=== PATIENT | male | born 1975 | race Caucasian/White ===

== ENCOUNTER → 2016-12-14 | Outpatient (CLI) | payer OTHER | LOC: BMCIMAGING 11:17 | PROVIDERS: ATTEND Family Medicine | DX: J18.9 Pneumonia, unspecified organism (principal) ==

== ENCOUNTER → 2017-04-14 | Outpatient (CLI) | payer OTHER | LOC: BMCIMAGING 10:03 | PROVIDERS: ATTEND Registered Nurse General Practice | DX: M25.511 Pain in right shoulder (principal); M25.561 Pain in right knee ==

== ENCOUNTER 2018-10-26 11:39 | Emergency (ER) | payer OTHER ==
--- NOTE | 2018-10-26 12:33 | EDPHY ---
H & P Stated Complaint: pt having coughing fits last week "has orange colored drng from l nares" Time Seen by Provider: 10/26/18 11:50 HPI/ROS: Chief Complaint: Nasal discharge HPI: 43-year-old male whose had recent URI symptoms for the last several weeks. He has been seen at urgent care a couple of times. He is having nasal discharge, congestion, dry cough. The doc at the urgent care thought he might have some reactive airway disease and started on inhaled steroid and albuterol. They also start him on Flonase 5 days ago. Patient is complaining of clear discharge from his right nostril for the last several days. Left nostrils had some pinkish fluid which is thicker for the last 3 days which is primarily there in the morning. He did have a nasal swab done at the urgent care which was positive for rhino virus. He has had a mild 1/10 headache. No neck pain. No stiffness. No back pain. No nausea or vomiting. No traumas or injuries. His is a nurse practitioner and became concerned about the clear liquid from his nostril might be a cerebral spinal fluid leak. He called his primary care physician's office and was instructed to come into the emergency department by the nursing staff. He says that the nasal swab did not seem particularly traumatic or aggressive and he has not been having any significant pain. No blood from his nostril. ROS: 10 systems were reviewed and were negative except those elements noted in the HPI. PMH: Denies Social History: No smoking, no alcohol, no recreational drug use Family History: non-contributory Physical Exam: Gen: Awake, Alert, No Distress HEENT: Nose: no rhinorrhea Eyes: PERRLA, EOMI Mouth: Moist mucosa Neck: Supple, no JVD Chest: nontender, lungs clear to auscultation Heart: S1, S2 normal, no murmur Abd: Soft, non-tender, no guarding Back: no CVA tenderness, no midline tenderness Ext: no edema, non-tender Skin: no rash Neuro: CN II-XII intact, Sensation grossly intact, Strength 5/5 in bilateral upper and lower extremities - Personal History Current Tetanus Diphtheria and Acellular Pertussis (TDAP): Yes - Medical/Surgical History Hx Asthma: No Hx Chronic Respiratory Disease: No Hx Diabetes: No Hx Cardiac Disease: No Hx Renal Disease: No Hx Cirrhosis: No Hx Alcoholism: No Hx HIV/AIDS: No Hx Splenectomy or Spleen Trauma: No Other PMH: denies - Social History Smoking Status: Former smoker Constitutional: Initial Vital Signs Temperature (C) 36.8 C 10/26/18 11:43 Heart Rate 73 10/26/18 11:43 Respiratory Rate 18 10/26/18 11:43 Blood Pressure 133/91 H 10/26/18 11:43 O2 Sat (%) 96 10/26/18 11:43 O2 Delivery Mode Room Air Allergies/Adverse Reactions: No Known Allergies Allergy (Unverified 10/26/18 11:43) Home Medications: Medication Instructions Recorded NK [No Known Home Meds] 10/26/18 Medical Decision Making ED Course/Re-evaluation: 43-year-old male presenting with clear nasal discharge with concerns he might have a leakage of cerebrospinal fluid. I have reassured him that given his history that a week of cerebral spinal fluid with no underlying mechanism for breech Ng this space would be extremely unlikely. In order to have a cerebral spinal fluid leak he would need to have a breech in the dura around the brain, a break in the skull plate and crossed through the galea and mucous membranes. He has not had any trauma which would cause such an injury. He does not have any symptoms suggestive of a CSF leak. He has been reassured. I have recommended that if his sinus symptoms persisted he should follow up with his physician and with an Ear Nose and Throat doctor. I believe the nasal discharge is sinus drainage in nature, likely secondary to his recent use of Flonase. I have answered all his questions. He is reassured. Will discharge with follow-up as stated. Departure - Departure Disposition: Home, Routine, Self-Care Clinical Impression: Sinusitis Condition: Good Instructions: Sinusitis (ED) Additional Instructions: Follow up with primary care physician and with Ear Nose and Throat doctor in about a week if symptoms are not improving. Continue taking her medications as prescribed. Return to the emergency department for increasing headache, fevers, uncontrolled vomiting, neck stiffness, or any other concerns. Referrals: Asia Mohamud MD [Primary Care Provider] - As per Instructions Ashley Shin MD [Medical Doctor] - As per Instructions
[2018-10-26 12:46] VITALS: BP 142/85
== END 2018-10-26 12:45 | disposition home or self-care (01) ==
DX: J32.9 Chronic sinusitis, unspecified (principal); Z87.891 Personal history of nicotine dependence